=== PATIENT | female | born 1990 | race Caucasian/White ===

== ENCOUNTER 2016-08-02 18:10 | Emergency (ER) | payer SELFPAY ==
[~2016-08-02] VITALS: Ht 154.9 cm; Wt 49.1 kg
[~2016-08-02 18:10] MED LIST: ADDERALL10 MG PO; KLONOPIN 1MG1 MG PO; NO HOME MEDICATIONS; NORCO 325 MG-51 TAB PO; TEGRETOL 2200 MG/TA1 PO
[2016-08-02 18:14] VITALS: TEMP 98.9
[2016-08-02] MEDS ORDERED: FLAGYL500 MG PO (18:19)
[2016-08-02] MEDS ORDERED: ATIVAN 0.50.5 MG/TAB (18:20)
[2016-08-02] MEDS ORDERED: CLEOCIN HCL300 MG PO (18:56)
[2016-08-02 19:10] LABS: BASO # 0.1 (0.0-0.2); BASO % 1.5 % (0.0-2.0); EOS # 0.2 (0.0-0.7); EOS % 4.4 % (0-4.0); GRAN % 57.5 % (42.2-75.2); HEMATOCRIT 38.5 % (37.0-47.0); HEMOGLOBIN 13.2 g/dl (12.5-16.0); LYMPH # 1.5 (1.2-3.4); LYMPH % 28.9 % (20.0-51.0); MEAN CELL VOLUME 93 fl (80.0-100.0); MEAN CORPUSCULAR HEMOGLOBIN 32 pg (27.0-31.0); MEAN CORPUSCULAR HGB CONC 34 g/dl (33.0-37.0); MEAN PLATELET VOLUME 9.7 fl (7.4-10.4); MONO # 0.4 (0.1-0.6); MONO % 7.3 % (1.7-9.3); PLATELET COUNT 314 K/mm3 (130-400); RED BLOOD COUNT 4.15 M/mm3 (4.10-5.30); REDCELL DISTRIBUTION WIDTH-CV 12.3 % (11.5-14.5); WHITE BLOOD COUNT 5.2 K/mm3 (4.8-10.8)
[2016-08-02 19:45] LABS: ADJUSTED CALCIUM 8.8 mg/dL (8.4-10.2); BILIRUBIN,TOTAL 0.9 mg/dL (0.0-1.0); CALCIUM 9.6 mg/dL (8.4-10.2); CREATININE, serum 0.68 mg/dL (0.52-1.25); POTASSIUM 3.9 mmol/L (3.4-5.0)
[2016-08-02 19:52] LABS: PH 6 (5-8); URINE APPEARANCE Clear; URINE BILIRUBIN Negative (NEGATIVE); URINE BLOOD 3+ (NEGATIVE); URINE COLOR Yellow; URINE GLUCOSE Negative (NEGATIVE); URINE KETONE Negative (NEGATIVE); URINE UROBILINOGEN Negative (NEGATIVE)
[2016-08-02 19:53] LABS: URINE RBC 20-50 /hpf; URINE WBC 20-50 /hpf
[2016-08-02] MEDS ORDERED: MACROBID 1100 MG/CAP PO (19:57)
[2016-08-02 20:18] VITALS: BP 129/78; PULSE 78
== END 2016-08-02 20:19 | disposition home or self-care (01) ==
LOC: COL.ER 18:10
PROVIDERS: Emergency Medicine
DX: N39.0 Urinary tract infection, site not specified (principal); F41.9 Anxiety disorder, unspecified; R11.0 Nausea; R19.7 Diarrhea, unspecified; R53.81 Other malaise; N76.0 Acute vaginitis; B96.89 Other specified bacterial agents as the cause of diseases classified elsewhere
CPT/HCPCS: J2405; J7030

== ENCOUNTER 2016-08-09 17:18 | Emergency (ER) | payer SELFPAY ==
[~2016-08-09] VITALS: Ht 154.9 cm; Wt 47.7 kg
[~2016-08-09 17:18] MED LIST changes: +ATIVAN 0.50.5 MG/TAB; +CLEOCIN HCL300 MG PO; +FLAGYL500 MG PO; +MACROBID 1100 MG/CAP PO
[2016-08-09 17:26] VITALS: BP 124/67; TEMP 99.3
[2016-08-09 19:11] LABS: BASO # 0.1 (0.0-0.2); BASO % 1.2 % (0.0-2.0); EOS # 0.4 (0.0-0.7); EOS % 6.3 % (0-4.0); GRAN # 3.4 (1.4-6.5); GRAN % 60.1 % (42.2-75.2); HEMATOCRIT 39.1 % (37.0-47.0); HEMOGLOBIN 13.3 g/dl (12.5-16.0); LYMPH # 1.5 (1.2-3.4); LYMPH % 26.6 % (20.0-51.0); MEAN CELL VOLUME 93 fl (80.0-100.0); MEAN CORPUSCULAR HEMOGLOBIN 32 pg (27.0-31.0); MEAN CORPUSCULAR HGB CONC 34 g/dl (33.0-37.0); MEAN PLATELET VOLUME 9.3 fl (7.4-10.4); MONO # 0.3 (0.1-0.6); MONO % 5.6 % (1.7-9.3); PLATELET COUNT 364 K/mm3 (130-400); RED BLOOD COUNT 4.19 M/mm3 (4.10-5.30); REDCELL DISTRIBUTION WIDTH-CV 12.4 % (11.5-14.5); WHITE BLOOD COUNT 5.7 K/mm3 (4.8-10.8)
[2016-08-09 19:30] LABS: PH 7 (5-8); SQUAMOUS EPITHELIAL None Seen /hpf; URINE APPEARANCE Hazy; URINE BACTERIA Rare /hpf; URINE BILIRUBIN Negative (NEGATIVE); URINE BLOOD Negative (NEGATIVE); URINE COLOR Yellow; URINE GLUCOSE Negative (NEGATIVE); URINE KETONE Negative (NEGATIVE); URINE RBC 0-2 /hpf; URINE UROBILINOGEN Negative (NEGATIVE); URINE WBC 0-2 /hpf
[2016-08-09 19:33] LABS: ADJUSTED CALCIUM 9.1 mg/dL (8.4-10.2); ALANINE AMINOTRANSFERASE 22 U/L (9-52); ALBUMIN 4.6 gm/dL (3.5-5.0); ALKALINE PHOSPHATASE 54 U/L (50-136); ANION GAP 12 mmol/L (7-16); BILIRUBIN,TOTAL 0.4 mg/dL (0.0-1.0); BLOOD UREA NITROGEN 13 mg/dL (7-17); CALCIUM 9.6 mg/dL (8.4-10.2); CARBON DIOXIDE 27 mmol/L (22-30); CHLORIDE 99 mmol/L (98-107); CREATININE, serum 0.68 mg/dL (0.52-1.25); GLUCOSE 84 mg/dL (74-106); POTASSIUM 4.2 mmol/L (3.4-5.0); SODIUM 138 mmol/L (137-145); TOTAL PROTEIN 7.3 gm/dL (6.4-8.2)
[2016-08-09 19:34] LABS: C-REACTIVE PROTEIN < 0.5 mg/dL (0.0-0.9)
[2016-08-09 19:46] LABS: ERYTHROCYTE SEDIMENTATION RATE 1 mm/hr (0-20)
[2016-08-09 20:44] VITALS: PULSE 78
== END 2016-08-09 20:44 | disposition home or self-care (01) ==
LOC: COL.ER 17:18
PROVIDERS: Nurse Practitioner
DX: R53.83 Other fatigue (principal); M25.542 Pain in joints of left hand; M25.541 Pain in joints of right hand; M25.572 Pain in left ankle and joints of left foot; M25.571 Pain in right ankle and joints of right foot; F41.9 Anxiety disorder, unspecified; F32.9 Major depressive disorder, single episode, unspecified; R07.9 Chest pain, unspecified; R06.00 Dyspnea, unspecified
CPT/HCPCS: J1885

== ENCOUNTER 2016-09-02 00:28 | Emergency (ER) | payer SELFPAY ==
[~2016-09-02] VITALS: Ht 154.9 cm; Wt 72.7 kg
[2016-09-02 00:31] VITALS: BP 141/77; TEMP 98.3
[2016-09-02 01:17] LABS: BASO # 0.1 (0.0-0.2); BASO % 0.9 % (0.0-2.0); EOS # 0.4 (0.0-0.7); EOS % 6.6 % (0-4.0); GRAN # 3.4 (1.4-6.5); GRAN % 51.3 % (42.2-75.2); HEMOGLOBIN 12.4 g/dl (12.5-16.0); LYMPH # 2.1 (1.2-3.4); LYMPH % 32.4 % (20.0-51.0); MEAN CELL VOLUME 93 fl (80.0-100.0); MEAN CORPUSCULAR HEMOGLOBIN 32 pg (27.0-31.0); MEAN CORPUSCULAR HGB CONC 34 g/dl (33.0-37.0); MEAN PLATELET VOLUME 9.2 fl (7.4-10.4); MONO # 0.6 (0.1-0.6); MONO % 8.5 % (1.7-9.3); PLATELET COUNT 312 K/mm3 (130-400); RED BLOOD COUNT 3.91 M/mm3 (4.10-5.30); REDCELL DISTRIBUTION WIDTH-CV 12.5 % (11.5-14.5); WHITE BLOOD COUNT 6.6 K/mm3 (4.8-10.8)
[2016-09-02 01:18] LABS: HEMATOCRIT 36.3 % (37.0-47.0)
[2016-09-02 01:23] LABS: PH 6 (5-8); SQUAMOUS EPITHELIAL 0-2 /hpf; URINE APPEARANCE Clear; URINE BACTERIA None Seen /hpf; URINE BILIRUBIN Negative (NEGATIVE); URINE BLOOD Negative (NEGATIVE); URINE COLOR Yellow; URINE GLUCOSE Negative (NEGATIVE); URINE KETONE Negative (NEGATIVE); URINE RBC 0-2 /hpf; URINE UROBILINOGEN Negative (NEGATIVE); URINE WBC 0-2 /hpf
[2016-09-02 01:27] LABS: ADJUSTED CALCIUM 8.7 mg/dL (8.4-10.2); ALBUMIN 4.5 gm/dL (3.5-5.0); BILIRUBIN,TOTAL 0.7 mg/dL (0.0-1.0); CALCIUM 9.1 mg/dL (8.4-10.2); CREATININE, serum 0.76 mg/dL (0.52-1.25); POTASSIUM 3.8 mmol/L (3.4-5.0); TOTAL PROTEIN 7.2 gm/dL (6.4-8.2)
[2016-09-02 02:26] VITALS: PULSE 68
== END 2016-09-02 02:25 | disposition home or self-care (01) ==
LOC: COL.ER 00:28
PROVIDERS: Emergency Medicine
DX: R06.00 Dyspnea, unspecified (principal); K21.9 Gastro-esophageal reflux disease without esophagitis
CPT/HCPCS: J8540

== ENCOUNTER 2017-08-08 19:23 | Emergency (ER) | payer SELFPAY ==
[~2017-08-08] VITALS: Ht 157.5 cm; Wt 50.9 kg
[2017-08-08 19:26] VITALS: TEMP 98.1
[2017-08-08 20:29] VITALS: BP 127/96
[2017-08-08 20:59] VITALS: PULSE 82
== END 2017-08-08 21:00 | disposition home or self-care (01) ==
LOC: COL.ER 19:23
DX: R07.81 Pleurodynia (principal)

== ENCOUNTER 2017-11-28 12:29 | Emergency (ER) | payer OTHER ==
[~2017-11-28] VITALS: Ht 157.5 cm; Wt 54.5 kg
[2017-11-28 12:35] VITALS: BP 141/93
[2017-11-28 13:15] LABS: COLLECTION METHOD CATHETER
[2017-11-28 13:25] LABS: PH 7 (5-8); SQUAMOUS EPITHELIAL 0-2 /hpf; URINE APPEARANCE Clear; URINE BACTERIA Rare /hpf; URINE BILIRUBIN Negative (NEGATIVE); URINE BLOOD Negative (NEGATIVE); URINE COLOR Colorless; URINE GLUCOSE Negative (NEGATIVE); URINE KETONE Negative (NEGATIVE); URINE LEUKOCYTE ESTERASE 1+ (NEGATIVE); URINE NITRATE Negative (NEGATIVE); URINE PROTEIN(semi-quant) Negative (NEGATIVE); URINE RBC 0-2 /hpf; URINE UROBILINOGEN Negative (NEGATIVE)
[2017-11-28] MEDS ORDERED: CEPHALEXIN500 M1 PO (13:36)
[2017-11-28 13:48] VITALS: PULSE 83; TEMP 98.9
== END 2017-11-28 13:53 | disposition home or self-care (01) ==
LOC: COL.ER 12:29
PROVIDERS: Physician Assistant
DX: S20.211A Contusion of right front wall of thorax, initial encounter (principal); N39.0 Urinary tract infection, site not specified; W14.XXXA Fall from tree, initial encounter

== ENCOUNTER 2018-07-22 17:21 | Emergency (ER) | payer BC ==
[~2018-07-22] VITALS: Ht 154.9 cm; Wt 52.1 kg
[~2018-07-22 17:21] MED LIST changes: +CEPHALEXIN500 M1 PO
[2018-07-22 17:29] VITALS: TEMP 98.4
[2018-07-22 18:15] LABS: BASO % 0.5 % (0.0-2.0); EOS # 0.1 (0.0-0.7); EOS % 0.8 % (0-4.0); GRAN # 6.4 (1.4-6.5); GRAN % 71.6 % (42.2-75.2); HEMATOCRIT 40.3 % (37.0-47.0); HEMOGLOBIN 13.7 g/dl (12.5-16.0); LYMPH # 1.8 (1.2-3.4); LYMPH % 20.8 % (20.0-51.0); MEAN CELL VOLUME 92 fl (80.0-100.0); MEAN CORPUSCULAR HEMOGLOBIN 31 pg (27.0-31.0); MEAN CORPUSCULAR HGB CONC 34 g/dl (33.0-37.0); MEAN PLATELET VOLUME 9.6 fl (7.4-10.4); MONO # 0.5 (0.1-0.6); PLATELET COUNT 343 K/mm3 (130-400); REDCELL DISTRIBUTION WIDTH-CV 13.2 % (11.5-14.5)
[2018-07-22 18:25] LABS: ALANINE AMINOTRANSFERASE 11 U/L (9-52); ALBUMIN 4.6 gm/dL (3.5-5.0); ALKALINE PHOSPHATASE 44 U/L (50-136); ANION GAP 13 mmol/L (7-16); AST,SGOT 25 U/L (15-37); BILIRUBIN,TOTAL 0.8 mg/dL (0.0-1.0); BLOOD UREA NITROGEN 11 mg/dL (7-17); C-REACTIVE PROTEIN < 0.5 mg/dL (0.0-0.9); CALCIUM 9.8 mg/dL (8.4-10.2); CARBON DIOXIDE 20 mmol/L (22-30); CHLORIDE 107 mmol/L (98-107); GLUCOSE 90 mg/dL (74-106); LIPASE 53 U/L (23-300); POTASSIUM 3.8 mmol/L (3.4-5.0); SODIUM 140 mmol/L (137-145); TOTAL PROTEIN 7.8 gm/dL (6.4-8.2)
[2018-07-22] MEDS ORDERED: NORCO 325 MG-51 TAB PO (19:38)
[2018-07-22] MEDS ORDERED: PROTONIX 40MG T40 MG PO (19:38)
[2018-07-22 20:05] VITALS: BP 117/75; PULSE 70
== END 2018-07-22 20:05 | disposition home or self-care (01) ==
LOC: COL.ER 17:21
PROVIDERS: Emergency Medicine
DX: R10.13 Epigastric pain (principal); K21.9 Gastro-esophageal reflux disease without esophagitis; F12.90 Cannabis use, unspecified, uncomplicated
CPT/HCPCS: J1885; J2405; J7030

== ENCOUNTER 2018-07-25 13:46 | Emergency (ER) | payer BC ==
[~2018-07-25] VITALS: Ht 154.9 cm; Wt 51.8 kg
[~2018-07-25 13:46] MED LIST changes: +PROTONIX 40MG T40 MG PO
[2018-07-25 13:52] VITALS: TEMP 99.8
[2018-07-25 14:33] LABS: COLLECTION METHOD CLEAN CATCH
[2018-07-25] MEDS ORDERED: KLONOPIN 0.5MG0.5 MG PO (14:33)
[2018-07-25 14:40] LABS: PH 6 (5-8); SQUAMOUS EPITHELIAL 0-2 /hpf; URINE APPEARANCE Clear; URINE BACTERIA None Seen /hpf; URINE BILIRUBIN Negative (NEGATIVE); URINE BLOOD Negative (NEGATIVE); URINE COLOR Straw; URINE GLUCOSE Negative (NEGATIVE); URINE KETONE Negative (NEGATIVE); URINE LEUKOCYTE ESTERASE Negative (NEGATIVE); URINE NITRATE Negative (NEGATIVE); URINE PROTEIN(semi-quant) Negative (NEGATIVE); URINE RBC None Seen /hpf; URINE UROBILINOGEN Negative (NEGATIVE)
[2018-07-25 14:42] LABS: BASO % 0.6 % (0.0-2.0); EOS # 0.1 (0.0-0.7); EOS % 1.1 % (0-4.0); GRAN % 69.9 % (42.2-75.2); HEMATOCRIT 41.2 % (37.0-47.0); HEMOGLOBIN 13.8 g/dl (12.5-16.0); LYMPH # 1.6 (1.2-3.4); LYMPH % 21.6 % (20.0-51.0); MEAN CELL VOLUME 92 fl (80.0-100.0); MEAN CORPUSCULAR HEMOGLOBIN 31 pg (27.0-31.0); MEAN CORPUSCULAR HGB CONC 34 g/dl (33.0-37.0); MEAN PLATELET VOLUME 9.6 fl (7.4-10.4); MONO # 0.5 (0.1-0.6); MONO % 6.5 % (1.7-9.3); PLATELET COUNT 337 K/mm3 (130-400); RED BLOOD COUNT 4.48 M/mm3 (4.10-5.30); REDCELL DISTRIBUTION WIDTH-CV 13.1 % (11.5-14.5)
[2018-07-25 14:51] LABS: ALANINE AMINOTRANSFERASE < 6 U/L (9-52); ALBUMIN 4.8 gm/dL (3.5-5.0); ALKALINE PHOSPHATASE 42 U/L (50-136); ANION GAP 13 mmol/L (7-16); AST,SGOT 25 U/L (15-37); BILIRUBIN,TOTAL 0.7 mg/dL (0.0-1.0); BLOOD UREA NITROGEN 9 mg/dL (7-17); C-REACTIVE PROTEIN < 0.5 mg/dL (0.0-0.9); CARBON DIOXIDE 25 mmol/L (22-30); CHLORIDE 105 mmol/L (98-107); CREATININE, serum 0.82 (0.52-1.25); GLUCOSE 96 mg/dL (74-106); SODIUM 142 mmol/L (137-145); TOTAL PROTEIN 8.2 gm/dL (6.4-8.2)
[2018-07-25] MEDS ORDERED: PRILOSEC 20MG20 MG PO (15:45)
[2018-07-25] MEDS ORDERED: VISTARIL 2525 MG/CAP PO (15:45)
[2018-07-25 16:46] VITALS: BP 135/94; PULSE 77
== END 2018-07-25 16:47 | disposition home or self-care (01) ==
LOC: COL.ER 13:46
PROVIDERS: Physician Assistant
DX: R10.13 Epigastric pain (principal); F32.9 Major depressive disorder, single episode, unspecified; E03.9 Hypothyroidism, unspecified; F41.9 Anxiety disorder, unspecified; Z87.891 Personal history of nicotine dependence

== ENCOUNTER 2020-11-03 11:07 | Emergency (ER) | payer BC ==
[~2020-11-03] VITALS: Ht 157.5 cm; Wt 50.0 kg
[~2020-11-03 11:07] MED LIST changes: +KLONOPIN 0.5MG0.5 MG PO; +PRILOSEC 20MG20 MG PO; +VISTARIL 2525 MG/CAP PO
[2020-11-03 11:33] VITALS: TEMP 98.7
[2020-11-03] MEDS ORDERED: MEDROL 4MG DOSPA4 MG PO (13:27)
[2020-11-03] MEDS ORDERED: FLEXERIL 1010 MG/TAB PO (13:27)
[2020-11-03 13:45] VITALS: BP 118/70; PULSE 80
== END 2020-11-03 13:45 | disposition home or self-care (01) ==
LOC: COL.ER 11:07
DX: S16.1XXA Strain of muscle, fascia and tendon at neck level, initial encounter (principal); M41.84 Other forms of scoliosis, thoracic region; M62.838 Other muscle spasm; X50.1XXA Overexertion from prolonged static or awkward postures, initial encounter
CPT/HCPCS: J1885; J2360

== ENCOUNTER 2021-08-08 13:34 | Emergency (ER) | payer BC ==
[~2021-08-08] VITALS: Ht 154.9 cm; Wt 45.5 kg
[~2021-08-08 13:34] MED LIST changes: +FLEXERIL 1010 MG/TAB PO; +MEDROL 4MG DOSPA4 MG PO
[2021-08-08 15:24] LABS: COLLECTION METHOD CLEAN CATCH
[2021-08-08 15:30] LABS: BASO # 0.1 K/mm3 (0.0-0.2); BASO % 0.6 % (0.0-2.0); EOS # 0.2 K/mm3 (0.0-0.7); EOS % 1.6 % (0.0-4.0); GRAN # 7.3 K/mm3 (1.4-6.5); HEMOGLOBIN 16.2 g/dl (12.5-16.0); LYMPH % 19.4 % (20.0-51.0); MEAN CELL VOLUME 93 fl (80.0-100.0); MEAN CORPUSCULAR HEMOGLOBIN 31 pg (27-31); MEAN CORPUSCULAR HGB CONC 34 g/dl (33.0-37.0); MEAN PLATELET VOLUME 8.9 fl (7.4-10.4); MONO # 0.6 K/mm3 (0.1-0.6); PLATELET COUNT 440 K/mm3 (130-400); RED BLOOD COUNT 5.19 M/mm3 (4.10-5.30); REDCELL DISTRIBUTION WIDTH-CV 12.8 % (11.5-14.5)
[2021-08-08 15:35] LABS: MUCOUS Present (NOT PRESENT); PH 7 (5-8); SQUAMOUS EPITHELIAL 0-2 /hpf (0-10); URINE APPEARANCE Clear (CLEAR/HAZY); URINE BACTERIA None Seen /hpf (NONE SEEN); URINE BILIRUBIN Negative (NEGATIVE); URINE BLOOD Negative (NEGATIVE); URINE COLOR Yellow (YELLOW); URINE GLUCOSE Negative (NEGATIVE); URINE KETONE Negative (NEGATIVE); URINE LEUKOCYTE ESTERASE Negative (NEGATIVE); URINE NITRATE Negative (NEGATIVE); URINE PROTEIN(semi-quant) Negative (NEGATIVE); URINE RBC 0-2 /hpf (0-2); URINE UROBILINOGEN Negative (NEGATIVE)
[2021-08-08 15:46] LABS: ALANINE AMINOTRANSFERASE 12 U/L (0-55); ALBUMIN 5.1 gm/dL (3.5-5.0); ALCOHOL(ethanol),MEDICAL < 10 mg/dL (0-10); ALKALINE PHOSPHATASE 42 U/L (40-150); ANION GAP 11 mmol/L (7-16); AST,SGOT 15 U/L (5-34); BILIRUBIN,TOTAL 0.9 mg/dL (0.2-1.2); BLOOD UREA NITROGEN 9 mg/dL (7-19); C-REACTIVE PROTEIN < 0.02 mg/dL (0.00-0.50); CALCIUM 9.8 mg/dL (8.4-10.2); CARBON DIOXIDE 27 mmol/L (22-29); CHLORIDE 104 mmol/L (98-107); CREATININE, serum 0.91 mg/dL (0.57-1.11); GLUCOSE 88 mg/dL (70-99); LIPASE 22 U/L (8-78); POTASSIUM 4.5 mmol/L (3.5-4.5); SODIUM 142 mmol/L (136-145); TOTAL PROTEIN 8.3 gm/dL (6.2-8.1)
[2021-08-08 15:54] LABS: TRICYCLIC ANTIDEPRESS URINE NEGATIVE
[2021-08-08 16:06] LABS: TSH w REFLEX 1.275 uIU/mL (0.350-4.940)
[2021-08-09 03:05] VITALS: BP 116/74; PULSE 65; TEMP 97.4
== END 2021-08-09 03:05 ==
LOC: COL.ER 13:34
PROVIDERS: Family Medicine
DX: F31.9 Bipolar disorder, unspecified (principal); F22 Delusional disorders; Z20.822 Contact with and (suspected) exposure to COVID-19; Z86.59 Personal history of other mental and behavioral disorders

== ENCOUNTER → 2021-08-26 22:45 | Emergency (ER) | payer BC | END | disposition home or self-care (01) | LOC: COL.ER 22:45 | DX: Z72.89 Other problems related to lifestyle (principal) ==

== ENCOUNTER 2021-08-26 23:02 | Emergency (ER) | payer BC ==
[~2021-08-26] VITALS: Ht 154.9 cm; Wt 47.7 kg
[2021-08-26 23:07] VITALS: TEMP 97.4
[2021-08-26 23:35] LABS: COLLECTION METHOD CLEAN CATCH
[2021-08-26 23:38] LABS: BASO # 0.1 K/mm3 (0.0-0.2); BASO % 0.9 % (0.0-2.0); EOS # 0.4 K/mm3 (0.0-0.7); EOS % 7.6 % (0.0-4.0); GRAN % 54.8 % (42.2-75.2); HEMATOCRIT 37.7 % (37.0-47.0); HEMOGLOBIN 12.4 g/dl (12.5-16.0); LYMPH # 1.5 K/mm3 (1.2-3.4); LYMPH % 28.1 % (20.0-51.0); MEAN CELL VOLUME 94 fl (80.0-100.0); MEAN CORPUSCULAR HEMOGLOBIN 31 pg (27-31); MEAN CORPUSCULAR HGB CONC 33 g/dl (33.0-37.0); MEAN PLATELET VOLUME 8.9 fl (7.4-10.4); MONO # 0.4 K/mm3 (0.1-0.6); PLATELET COUNT 379 K/mm3 (130-400); RED BLOOD COUNT 4.02 M/mm3 (4.10-5.30); REDCELL DISTRIBUTION WIDTH-CV 12.6 % (11.5-14.5)
[2021-08-26 23:41] LABS: MUCOUS Present (NOT PRESENT); PH 6 (5-8); SQUAMOUS EPITHELIAL 0-2 /hpf (0-10); URINE APPEARANCE Clear (CLEAR/HAZY); URINE BACTERIA Rare /hpf (NONE SEEN); URINE BILIRUBIN Negative (NEGATIVE); URINE BLOOD 2+ (NEGATIVE); URINE COLOR Yellow (YELLOW); URINE GLUCOSE Negative (NEGATIVE); URINE KETONE Negative (NEGATIVE); URINE LEUKOCYTE ESTERASE Negative (NEGATIVE); URINE NITRATE Negative (NEGATIVE); URINE PROTEIN(semi-quant) Negative (NEGATIVE); URINE RBC 0-2 /hpf (0-2); URINE UROBILINOGEN Negative (NEGATIVE)
[2021-08-26 23:54] LABS: TRICYCLIC ANTIDEPRESS URINE NEGATIVE
[2021-08-26 23:59] LABS: ALANINE AMINOTRANSFERASE 13 U/L (0-55); ALBUMIN 3.8 gm/dL (3.5-5.0); ALKALINE PHOSPHATASE 42 U/L (40-150); ANION GAP 11 mmol/L (7-16); AST,SGOT 12 U/L (5-34); BILIRUBIN,TOTAL 0.7 mg/dL (0.2-1.2); BLOOD UREA NITROGEN 7 mg/dL (7-19); CALCIUM 8.9 mg/dL (8.4-10.2); CARBON DIOXIDE 25 mmol/L (22-29); CHLORIDE 105 mmol/L (98-107); CREATININE, serum 0.78 mg/dL (0.57-1.11); GLUCOSE 95 mg/dL (70-99); SODIUM 141 mmol/L (136-145); TOTAL PROTEIN 6.7 gm/dL (6.2-8.1)
[2021-08-27 00:01] LABS: ACETAMINOPHEN < 1.0 ug/mL (10-30); ALCOHOL(ethanol),MEDICAL < 10 mg/dL (0-10); SALICYLATE < 5.0 mg/dL (15.0-30.0)
[2021-08-27 01:17] VITALS: BP 117/85; PULSE 75
== END 2021-08-27 01:50 | disposition home or self-care (01) ==
LOC: COL.ER 23:02
PROVIDERS: Nurse Practitioner
DX: F32.A Depression, unspecified (principal); F17.210 Nicotine dependence, cigarettes, uncomplicated; Z28.310 Unvaccinated for COVID-19

== ENCOUNTER 2021-10-29 22:46 | Emergency (ER) | payer BC ==
[~2021-10-29] VITALS: Ht 154.9 cm; Wt 47.7 kg
[2021-10-29 22:51] VITALS: TEMP 98.3
[2021-10-30 00:06] VITALS: BP 122/78; PULSE 76
== END 2021-10-30 00:06 | disposition home or self-care (01) ==
LOC: COL.ER 22:46
DX: F41.9 Anxiety disorder, unspecified (principal); T40.715A Adverse effect of cannabis, initial encounter; F17.210 Nicotine dependence, cigarettes, uncomplicated